=== PATIENT | male | born 1975 | race Two or more races ===

== ENCOUNTER 2020-09-04 06:20 | Emergency (ER) | payer SELFPAY ==
[~2020-09-04] VITALS: Ht 165.1 cm; Wt 61.2 kg
[2020-09-04] MEDS ORDERED: TETANUS-DIPTH-ACEL PERTUSSIS 0.5ML SYR Tdap IM ONE (08:00)
[2020-09-04] MEDS ORDERED: cefTRIAXone W LIDOCAINE 1 GM IM IM ONE (08:00)
[2020-09-04] MEDS ORDERED: cefTRIAXone SOD 1,000 MG VL ONE (08:34)
[2020-09-04] MEDS ORDERED: LIDOCAINE 2% (LOCAL ANESTH.) PF 5ml SDV ONE (08:34)
[2020-09-04 08:41] VITALS: BP 122/87
== END 2020-09-04 08:43 | disposition home or self-care (01) ==
LOC: ER 06:20
DX: S51.831A Puncture wound without foreign body of right forearm, initial encounter (principal); S51.811A Laceration without foreign body of right forearm, initial encounter; F17.210 Nicotine dependence, cigarettes, uncomplicated; F12.10 Cannabis abuse, uncomplicated; W34.09XA Accidental discharge from other specified firearms, initial encounter; Y93.89 Activity, other specified; Y92.89 Other specified places as the place of occurrence of the external cause; Y99.8 Other external cause status
CPT/HCPCS: 73090; 90471; 90715; 96372; 99284; J0696; J2001